=== PATIENT | male | born 1960 | race African-American/Black ===

== ENCOUNTER 2017-05-14 10:49 | Observation (INO) | payer SELFPAY ==
[2017-05-14 11:27] LABS: #Basophils 0.1 thou/uL (0.0-0.2); #Eosinphils 0.3 thou/uL (0.0-0.7); #Lymphocytes 1.7 thou/uL (1.20-3.40); #Monocytes 0.8 thou/uL (0.11-0.59); #Neutrophils 3.3 thou/uL (1.40-6.50); %Basophils 1.6 % (0.0-1.0); %Eosinophils 4.4 % (0.0-10.0); %Lymphocytes 28.1 % (21.0-51.0); %Monocytes 12.6 % (0.0-10.0); %Neutrophils 53.3 % (42.0-75.0); Hemoglobin 15.1 g/dL (14.0-18.0); Mean Corpuscular HGB CONC 33.2 g/dL (32.0-36.0); Mean Corpuscular Hemoglobin 29.2 pg (27.0-31.0); Mean Corpuscular Volume 87.8 fl (80.0-94.0); Mean Platelet Volume 8.7 fL (7.4-10.4); Platelet Count 287 thou/uL (130-400); RBC Distribution Width 12.1 % (11.5-14.5); Red Blood Cell (RBC) Count 5.19 mill/uL (4.70-6.10); White Blood Cell (WBC) Count 6.1 thou/uL (4.8-10.8)
[2017-05-14 11:30] LABS: Bilirubin Negative (Negative); Blood, Urine Negative (Negative); Clarity CLEAR (Clear); Glucose, Urine (Dipstick) Negative (Negative); Leukocyte Small (Negative); Nitrite Negative (Negative); Protein, Urine (Dipstick) Negative (Neg-Trace); Specific Gravity, Urine 1.018 (1.002-1.036)
[2017-05-14 11:32] LABS: Bacteria/HPF None Seen HPF (None Seen); Hyaline Casts/LPF 0-3 HYALINE CAST LPF (0-3 Hyaline); Squamous Epithelial None Seen HPF (0-3); WBC/HPF 0-3 HPF (0-3)
[2017-05-14 11:50] LABS: CKMB 1.4 ng/mL (0-6.6); Troponin I 0.071 ng/mL (< 0.028)
--- NOTE | 2017-05-14 11:52 | RAD ---
FRONTAL VIEW CHEST: INDICATIONS: Dizziness and nausea. COMPARISON: None. FINDINGS: The lungs are clear. The cardiac silhouette is normal in size. Mild osseous degenerative change is present. IMPRESSION: No focal consolidation. POS: [facility]
[2017-05-14 11:56] LABS: ALT (SGPT) 15 U/L (8-55); AST (SGOT) 17 U/L (5-34); Alkaline Phosphatase 58 U/L (40-150); Anion Gap 11 mmol/L (10-20); BUN (Urea Nitrogen) 15 mg/dL (8.4-25.7); Bilirubin, Total 0.7 mg/dL (0.2-1.2); CK (CPK) 156 U/L (30-200); Calc. Creatinine Clearance 0 mL/min (70-130); Calcium 9.2 mg/dL (7.8-10.44); Carbon Dioxide 29 mmol/L (22-29); Chloride 99 mmol/L (98-107); Estimated GFR-MDRD 77; Globulin 3.3 g/dL (2.4-3.5); Glucose 138 mg/dL (70-105); Protein, Total 7.3 g/dL (6.0-8.3); Sodium 136 mmol/L (136-145)
[2017-05-14] MEDS ORDERED: Benzonatate 100 MG CAP ONE (12:38)
[2017-05-14] MEDS ORDERED: Meclizine HCl 25 MG TAB ONE (13:05)
[2017-05-14] MEDS ORDERED: Ondansetron HCl/PF 4 MG/2 ML Vial ONE (13:06)
--- NOTE | 2017-05-14 13:38 | CT ---
CT BRAIN WITHOUT CONTRAST: History: Dizziness. 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 No evidence of acute infarct, hemorrha ge, midline shift, or abnormal extraaxial fluid collections are seen. The ventricular size is appropr iate and the basal cisterns are patent. The bony calvarium is intact. Visualized paranasal sinuses an d mastoid air cells are well aerated. IMPRESSION: No CT evidence of acute intracranial process. POS: [facility]
--- NOTE | 2017-05-14 15:10 | HP ---
PRIMARY CARE PHYSICIAN: [facility]. REASON FOR ADMISSION: Dizziness and elevated troponin. HISTORY OF PRESENT ILLNESS: A 56-year-old -[place] male with a history of obesity as well as hypertension who presented to emergency room with a complaint of dizziness. The patient reports alexei t 3 days ago symptoms started along with dizziness and nausea. He feels wobbly, but he never fell. He denies any headache. He denies any chest pain, palpitation or syncope. He has upper respiratory infection including cough and runny nose, but he denies any tinnitus. He denies any ear pain. He de nies any paresthesia in upper or lower extremity. He denies any diplopia or blurred vision. He denies any difficulty combing. He denies any difficulty holding object. Patient denies any chest pain or palpitation, but today in the emergency room his troponin is indeter minant range. He denies any orthopnea, PND or leg swelling. He denies any calf tenderness. He meghan es any UTI symptoms. He denies any constipation, diarrhea, melena or hematochezia. In the emergency room, he is treated with meclizine, IV fluid, aspirin, Zofran, Tessalon, but still h is symptoms have not improved and that is why ER physician concerned about posterior circulation stro ke and we are keeping in hospital for observation. 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 His chest x-ray is normal. Routine blood tests showed h ypokalemia. ALLERGIES: No known drug allergy. CURRENT HOME MEDICATIONS: Atenolol 100 mg p.o. daily, lisinopril 40 mg p.o. daily, and hydrochloroth iazide 50 mg p.o. daily. REVIEW OF SYSTEMS: The following complete review of systems was negative, unless otherwise mentioned in the HPI or below: Constitutional: Weight loss or gain, ability to conduct usual activities. Skin: Rash, itching. Eyes: Double vision, pain. ENT/Mouth: Nose bleeding, neck stiffness, pain, tenderness. Cardiovascular: Palpitations, dyspnea on exertion, orthopnea. Respiratory: Shortness of breath, wheezing, cough, hemoptysis, fever or night sweats. Gastrointestinal: Poor appetite, abdominal pain, heartburn, nausea, vomiting, constipation, or diarr hea. Genitourinary: Urgency, frequency, dysuria, nocturia. Musculoskeletal: Pain, swelling. Neurologic/Psychiatric: Anxiety, depression. Allergy/Immunologic: Skin rash, bleeding tendency. Please see my HPI for pertinent positive and negative. All other review of systems reviewed and nega tive except as mentioned in the HPI. PAST MEDICAL HISTORY: Morbid obesity, nephrolithiasis, and hypertension. PAST SURGICAL HISTORY: Back surgery and left hand surgery. PAST PSYCHIATRIC HISTORY: Reviewed and negative. SOCIAL HISTORY: Patient lives at home. No history of tobacco, alcohol or illicit drug abuse. FAMILY HISTORY: No strong family history of premature coronary artery disease, stroke or cancer. EMERGENCY ROOM COURSE: Patient is given aspirin, Zofran, IV fluid, meclizine and Tessalon Perles. PHYSICAL EXAMINATION: VITAL SIGNS: Currently, blood pressure 128/71, pulse 59, respiratory rate 18, temperature 97.5, satu ration 96% on room air, and weight 112.4 kilograms. GENERAL: Patient is currently alert, oriented, no acute distress. HEAD: Normocephalic, atraumatic. EYES: Pupils round, reactive to light. No nystagmus. ENT: Oropharynx within normal limits. Ear examination within normal limit. External ear normal. T ympanic membrane normal. No pharyngeal erythema, no exudate. NECK: Supple, no JVD, no thyromegaly, no carotid bruit, no meningeal signs of irritation. LUNGS: Clear to auscultation without any rhonchi or rales. CARDIAC: S1, S2 regular without any murmur. ABDOMEN: Obesity present. Bowel sounds present, nontender, nondistended. No organomegaly, no mass, no suprapubic tenderness. BACK: Examination unremarkable, no CVA tenderness. EXTREMITIES: Upper extremity passive movements of all joints are normal. Lower extremities: No beata ma. Good peripheral pulsation, no calf tenderness. SKIN: No skin rash. HEMATOLOGICAL SYSTEM: No lymphadenopathy. PSYCHIATRIC: Normal affect. NEUROLOGIC: Patient is alert and oriented x3. Cranial nerves II-XII intact. Motor 5/5 in all four limbs. Sensation bilaterally symmetrical. No cerebellar sign. Reflexes bilaterally symmetrical. P lantar bilateral flexor. IMAGING DATA AND SIGNIFICANT LABORATORY DATA: 1. EKG showing normal sinus rhythm, nonspecific T-wave changes. 2. CT brain showing old infarct in the right frontal horn, but no acute process. 3. Chest x-ray based on my review, no acute cardiopulmonary process. 4. CBC: WBC 6.1, hemoglobin 15.1, platelet 287. 5. Urinalysis; leukocyte small, CK-MB 1.4, troponin I 0.071. Influenza screen negative. CK 156. 6. BMP: Sodium 136, potassium 3.0, chloride 99, carbon dioxide 29, anion gap 11, BUN 15, creatinine 1.18, glucose 138, calcium 9.2. 7. LFT: Protein 7.3, albumin 4.0, AST 17, ALT 15, alkaline phosphatase 58. ASSESSMENT AND PLAN/IMPRESSION: 1. Dizziness and nausea. Patient's description is atypical. He has upper respiratory infection, dorado spected for vestibular involvement, but exact and obvious clinical signs are not evident on examinati on. Does not suspect any cerebellar stroke or posterior circulation stroke, but cannot be entirely e xcluded given indeterminate troponin needs to rule out any arrhythmia as well. Orthostatic dizziness is also possible given he is taking several blood pressure medications and his blood pressure is rel atively lower side. At this point, we will keep this patient in hospital for observation to try to m alannah a diagnosis. We will check orthostatic vitals. We will obtain MRI brain, carotid Doppler echoca rdiography as a part of workup for stroke. We will check lipid profile, homocysteine tomorrow. We w ill also treat symptomatically with Antivert 25 mg t.i.d. scheduled and we will hydrate him with IV f luid with NS with KCl at 75 mL per hour. We will only use blood pressure medication if blood pressur e allows us. He may need treated with adjustment in his blood pressure medication given his bradycar fredy, so we may need to reduce atenolol dose and we may need to reduce dose of hydrochlorothiazide as well, but we will device all of these based on his hemodynamics. 2. Elevated troponin, etiology uncertain. He does not have any EKG changes. He does not have any c hest pain, but troponin is slightly elevated. We will do 3 sets of cardiac enzymes to see the trend of troponin. We will obtain echocardiography and we will continue with aspirin 325 mg p.o. daily and we will check lipid profile as well. We will monitor on telemetry floor for any arrhythmias. 3. Morbid obesity. Dietary education given. Weight loss education given. Healthy lifestyle measur es discussed with the patient. 4. Hypokalemia, likely related with hydrochlorothiazide. We will give him IV fluid with potassium a nd we will also check magnesium level as well and replace accordingly. We will repeat BMP tomorrow. 5. History of hypertension. At this point, we will give him blood pressure medication only if blood pressure is increasing. At that time we will try to give him lisinopril 10 mg p.o. daily, hydrochlo rothiazide 12.5 mg p.o. daily and atenolol 25 mg p.o. daily and then we will decide if he needs more or dose or not. 6. Deep venous thrombosis prophylaxis, Lovenox 40 mg subcu daily. 7. Gastrointestinal prophylaxis, Pepcid 20 mg p.o. b.i.d. 8. Code status: The patient is FULL CODE. The patient does not have any surrogate decision maker. Disposition plan based on clinical course and above-mentioned investigation results, likely within 24 hours. We will also check urine drug screen.
[2017-05-14 16:32] LABS: Troponin I 0.077 ng/mL (< 0.028)
[2017-05-14 16:35] VITALS: BMI 36.9
[2017-05-14] MEDS ORDERED: Milk Of Magnesia 30 ML UDCUP PO PRN (17:09)
[2017-05-14] MEDS ORDERED: Mag-Al 1200 mg/1200 mg/30 ML UDCUP PO PRN (17:09)
[2017-05-14] MEDS ORDERED: Acetaminophen 325 MG TAB PO PRN (17:09)
[2017-05-14] MEDS ORDERED: Zolpidem Tartrate 5 MG TAB PO PRN (17:09)
[2017-05-14] MEDS ORDERED: Artificial Tear Sol 15 ML BOT EA EYE PRN (17:09)
[2017-05-14] MEDS ORDERED: Loperamide HCl 2 MG CAP PO PRN (17:09)
[2017-05-14] MEDS ORDERED: Sodium Chloride 0.65% Nasal 44 ML BOT EA NARE PRN (17:09)
[2017-05-14] MEDS ORDERED: Nitroglycerin 0.4 MG TAB (25 Tab Bottle) SL PRN (17:09)
[2017-05-14] MEDS ORDERED: Eucerin (Mineral Oil/Petrolatum,White) 30 gm Jar TOP PRN (17:09)
[2017-05-14] MEDS ORDERED: Loratadine 10 MG TAB PO PRN (17:09)
[2017-05-14] MEDS ORDERED: Ondansetron HCl/PF 4 MG/2 ML Vial IVP PRN (17:09)
[2017-05-14] MEDS ORDERED: Diabetic Tussin 200 MG/10 ML UDCUP PO PRN (17:09)
[2017-05-14] MEDS ORDERED: Ondansetron ODT 4 MG TAB PO PRN (17:09)
[2017-05-14] MEDS ORDERED: hydrALAZINE 20 MG/ML VIAL SLOW IVP PRN (17:09)
[2017-05-14] MEDS ORDERED: Senokot 8.6 MG TAB PO PRN (17:09)
[2017-05-14] MEDS ORDERED: HYDROcodone/Acetaminophen 5/325 mg Tablet PO PRN (17:09)
[2017-05-14] MEDS ORDERED: Chloraseptic Spray 180 ml Bottle PO PRN (17:09)
[2017-05-14] MEDS: NS 0.9% w/ 20 MEQ KCL 1,000 ML/1,000 ML BAG IV SCH (18:40)
[2017-05-14 19:00] LABS: Troponin I 0.073 ng/mL (< 0.028)
[2017-05-14 19:08] LABS: Amphetamine Not Detected (NotDetected); Barbiturates Screen Not Detected (NotDetected); Benzodiazepine Screen Not Detected (NotDetected); Cocaine Metabolite Screen Not Detected (NotDetected); Medtox Control Line Valid? VALID (VALID); Medtox Reader # READER 1; Methadone Not Detected (NotDetected); Methamphetamine Not Detected (NotDetected); Opiate Screen Not Detected (NotDetected); Oxycodone Screen Not Detected (NotDetected); Phencyclidine (PCP) Not Detected (NotDetected); THC/Cannabinoid Screen Not Detected (NotDetected); Tricyclic Screen Not Detected (NotDetected)
--- NOTE | 2017-05-14 20:02 | ULT ---
CAROTID DUPLEX SONOGRAM 05/14/17 HISTORY: Altered mental status. Vascular disease. FINDINGS: RIGHT: Mild plaque. Color and spectral doppler evaluation, peak systolic velocity of 66 cm/s and IC to CC ra riaz of 0.9 suggests no hemodynamically significant stenosis within the extracranial right ICA. Antegr stephany flow is present within the vertebral artery. LEFT: Minimal plaque. Color and spectral doppler evaluation, peak systolic velocity of 42 cm/s and IC to CC ratio of 0.3 suggests no hemodynamically significant stenosis within the extracranial left ICA. Ante grade flow is present within the vertebral artery. IMPRESSION: 1. No sonographic evidence of significant extracranial ICA stenosis. 2. Atherosclerosis. POS: [facility]
[2017-05-14] MEDS ORDERED: FLU VACC QS2017-18 36 mo. & older 0.5 ML SYRINGE IM ONE (21:00)
[2017-05-14] MEDS ORDERED: Atorvastatin Calcium 40 MG TAB PO SCH (21:00)
[2017-05-14] MEDS: Famotidine 20 MG TAB PO SCH (21:19)
[2017-05-14] MEDS: Meclizine HCl 25 MG TAB PO SCH (21:19)
[2017-05-15 04:59] LABS: #Eosinphils 0.4 thou/uL (0.0-0.7); #Lymphocytes 1.6 thou/uL (1.20-3.40); #Monocytes 0.8 thou/uL (0.11-0.59); #Neutrophils 3.4 thou/uL (1.40-6.50); %Basophils 0.6 % (0.0-1.0); %Eosinophils 6.2 % (0.0-10.0); %Lymphocytes 26.2 % (21.0-51.0); %Monocytes 12.4 % (0.0-10.0); %Neutrophils 54.7 % (42.0-75.0); Hemoglobin 14.8 g/dL (14.0-18.0); Mean Corpuscular HGB CONC 34.2 g/dL (32.0-36.0); Mean Corpuscular Hemoglobin 30.2 pg (27.0-31.0); Mean Corpuscular Volume 88.3 fl (80.0-94.0); Mean Platelet Volume 8.5 fL (7.4-10.4); Platelet Count 259 thou/uL (130-400); RBC Distribution Width 12.2 % (11.5-14.5); White Blood Cell (WBC) Count 6.2 thou/uL (4.8-10.8)
[2017-05-15] MEDS: Meclizine HCl 25 MG TAB PO SCH ×2 (05:09→13:36)
[2017-05-15 05:21] LABS: Anion Gap 7 mmol/L (10-20); BUN (Urea Nitrogen) 13 mg/dL (8.4-25.7); Calc. Creatinine Clearance 119 mL/min (70-130); Calcium 8.8 mg/dL (7.8-10.44); Carbon Dioxide 32 mmol/L (22-29); Cardiac Risk 5.9 (Less than 4.5); Chloride 100 mmol/L (98-107); Cholesterol 200 mg/dl (< 200 Desired); Estimated GFR-MDRD 83; Glucose 115 mg/dL (70-105); HDL Cholesterol 34 mg/dL (>60 Neg Risk); LDL Cholesterol, Calculated 148 mg/dL; Potassium 3.4 mmol/L (3.5-5.1); Sodium 136 mmol/L (136-145); Triglycerides 91 mg/dL (Less than 150)
[2017-05-15] MEDS ORDERED: Potassium Chloride 20 MEQ TAB PO SCH (07:00)
[2017-05-15] MEDS: NS 0.9% w/ 20 MEQ KCL 1,000 ML/1,000 ML BAG IV SCH (07:47)
[2017-05-15] MEDS ORDERED: Lisinopril 20 MG TAB PO SCH (09:00)
[2017-05-15] MEDS ORDERED: Amlodipine 5 MG TAB PO SCH (09:00)
[2017-05-15] MEDS ORDERED: Aspirin 325 mg Enteric Coated Tablet PO SCH (09:00)
[2017-05-15] MEDS ORDERED: Enoxaparin Sodium 40 MG/0.4 ML SYRINGE SC SCH (09:00)
--- NOTE | 2017-05-15 09:24 | PDOC.PN ---
- Subjective Encounter Start Date: 05/15/17 Encounter Start Time: 07:10 -: old records requested/rev no vertigo today, no cough, Patient seen and examined. No new complaints. No overnight events - Objective Resuscitation Status: Resuscitation Status FULL:Full Resuscitation MAR Reviewed: Yes Vital Signs & Weight: Vital Signs (12 hours) Temp Pulse Resp BP Pulse Ox 05/15/17 08:00 97.8 F 68 20 143/88 H 95 05/15/17 04:00 98.0 F 61 20 149/93 H 05/15/17 00:00 98.3 F 63 20 151/93 H 20 L I&O: 05/14/17 05/15/17 05/16/17 06:59 06:59 06:59 Intake Total 1400 Balance 1400 Result Diagrams: 05/15/17 04:45 05/15/17 04:45 Radiology Reviewed by me: Yes (carotid us-normal) EKG Reviewed by me: Yes (nsr) Phys Exam - Physical Examination Constitutional: NAD HEENT: PERRLA, moist MMs, sclera anicteric Neck: no JVD, supple Respiratory: no wheezing, no rales, no rhonchi Cardiovascular: RRR, no significant murmur, no rub Gastrointestinal: soft, non-tender, no distention, positive bowel sounds Musculoskeletal: no edema, pulses present Neurological: non-focal, normal sensation, moves all 4 limbs Psychiatric: normal affect, A&O x 3 Skin: no rash, normal turgor Dx/Plan (1) Dizziness Code(s): R42 - DIZZINESS AND GIDDINESS Status: Acute (2) Elevated troponin Code(s): R74.8 - ABNORMAL LEVELS OF OTHER SERUM ENZYMES Status: Acute (3) Hypokalemia Code(s): E87.6 - HYPOKALEMIA Status: Acute (4) Hypertension Code(s): I10 - ESSENTIAL (PRIMARY) HYPERTENSION Status: Chronic (5) Obesity (BMI 30-39.9) Code(s): E66.9 - OBESITY, UNSPECIFIED Status: Chronic - Plan cont current plan of care * today MRI and echo * pt is advised to reduce 50% dose of his BP meds on discharge and monitor BP and follow up with PCP * add lipitor, asa, ventolin inhalar, antivert on discharge * medication reviewed as below * symptomatic treatment * will discharge later today. Review of Systems - Review of Systems ENT: negative: Ear Pain, Ear Discharge, Nose Pain, Nose Discharge, Nose Congestion, Mouth Pain, Mouth Swelling, Throat Pain, Throat Swelling, Other Respiratory: negative: Cough, Dry, Shortness of Breath, Hemoptysis, SOB with Excertion, Pleuritic Pain, Sputum, Wheezing Cardiovascular: negative: chest pain, palpitations, orthopnea, paroxysmal nocturnal dyspnea, edema, light headedness, other Gastrointestinal: negative: Nausea, Vomiting, Abdominal Pain, Diarrhea, Constipation, Melena, Hematochezia, Other Genitourinary: negative: Dysuria, Frequency, Incontinence, Hematuria, Retention , Other Musculoskeletal: negative: Neck Pain, Shoulder Pain, Arm Pain, Back Pain, Hand Pain, Leg Pain, Foot Pain, Other Skin: negative: Rash, Lesions, Rik, Bruising, Other - Medications/Allergies Allergies/Adverse Reactions: Allergies Allergy/AdvReac Type Severity Reaction Status Date / Time No Known Drug Allergies Allergy Verified 05/14/17 15:54 Medications: Current Medications Acetaminophen (Tylenol) 650 mg PO Q4H PRN PRN Reason: Headache/Fever or Pain Hydrocodone Bitart/Acetaminophen ([place] 5/325) 1 tab PO Q4H PRN PRN Reason: Moderate Pain (4-6) Al Hydroxide/Mg Hydroxide (Maalox) 30 ml PO Q6H PRN PRN Reason: Heartburn or Indigestion Amlodipine Besylate (Norvasc) 5 mg PO DAILY [facility] Artificial Tears (Tears Renewed 15ml Bottle) 0 drop EA EYE PRN PRN PRN Reason: Dry Eyes Aspirin (Ecotrin) 325 mg PO DAILY [facility] Atorvastatin Calcium (Lipitor) 40 mg PO HS [facility] Last Admin: 05/14/17 21:19 Dose: 40 mg Enoxaparin Sodium (Lovenox) 40 mg SC 0900 [facility] Famotidine (Pepcid) 20 mg PO BID [facility] Last Admin: 05/14/17 21:19 Dose: 20 mg Guaifenesin (Robitussin Sf) 200 mg PO Q4H PRN PRN Reason: Cough Hydralazine HCl (Apresoline) 10 mg SLOW IVP Q4H PRN PRN Reason: Systolic BP > 180 Lisinopril (Zestril) 20 mg PO DAILY [facility] Loperamide HCl (Imodium) 2 mg PO PRN PRN PRN Reason: Diarrhea/Loose Stools Loratadine (Claritin) 10 mg PO DAILYPRN PRN PRN Reason: Sinus Symptoms Magnesium Hydroxide (Milk Of Magnesium) 30 ml PO DAILYPRN PRN PRN Reason: Constipation Meclizine HCl (Antivert) 25 mg PO Q8HR [facility] Last Admin: 05/15/17 05:09 Dose: 25 mg Mineral Oil/White Petrolatum (Eucerin Cream) 0 gm TOP BIDPRN PRN PRN Reason: Dry Skin Nitroglycerin (Nitrostat) 0.4 mg SL Q5MIN PRN PRN Reason: Chest Pain Ondansetron HCl (Zofran Odt) 4 mg PO Q6H PRN PRN Reason: Nausea/Vomiting Ondansetron HCl (Zofran) 4 mg IVP Q6H PRN PRN Reason: Nausea/Vomiting Phenol (Chloraseptic [place] 180 Ml Bot) 0 ml PO PRN PRN PRN Reason: Sore Throat Senna (Senokot) 2 tab PO HSPRN PRN PRN Reason: Constipation Sodium Chloride ([place] Nasal [place] 0.65%) 0 ml EA NARE QIDPRN PRN PRN Reason: Nasal Congestion Zolpidem Tartrate (Ambien) 5 mg PO HSPRN PRN PRN Reason: Insomnia
[2017-05-15] MEDS: Famotidine 20 MG TAB PO SCH (09:45)
--- NOTE | 2017-05-15 10:31 | DIS ---
DATE OF ADMISSION: 05/14/2017 DATE OF DISCHARGE: 05/15/2017 [facility]: Home. PRIMARY DISCHARGE DIAGNOSES: 1. Dizziness. 2. Elevated troponin due to demand ischemia. 3. Hypokalemia. SECONDARY DISCHARGE DIAGNOSES: Hypertension, obesity with body mass index 36. PRIMARY PROCEDURE/OPERATION: None. RADIOLOGICAL INVESTIGATION: Carotid Doppler is normal. CT brain is negative for any acute intracran ial process, showed old infarction in the right frontal horn. Chest x-ray normal. PENDING TEST RESULTS: MRI brain as well as echocardiography. SIGNIFICANT LABS: WBC 6.2, hemoglobin 14.8, platelet 259. Sodium 136, potassium 3.4, BUN 13, creati nine 1.10. LFT normal. Troponin 0.073, LDL 148. Homocysteine 10.29. Urinalysis unremarkable. Uri ne drug screen negative. Influenza screen negative. DISCHARGE MEDICATIONS: Norvasc 10 mg p.o. daily, aspirin 325 mg p.o. daily, atenolol 100 mg p.o. ranulfo ly, Lipitor 10 mg p.o. daily, [place] 25 mg p.o. daily, lisinopril 40 mg p.o. daily, Antivert 25 mg p.o. q.8 hourly p.r.n. ADDITIONTAL INFORMATION: This patient is advised to take half dose of his antihypertensive medicatio n for at least 1 week and monitor blood pressure frequently at home and see the primary care physicia n in 1 week, so they can decide with reducing dose of antihypertensive medication. The patient is ad vised if blood pressure is going very high, then he can resume his home medication dose. CONTRAINDICATIONS: None. CODE STATUS: FULL CODE. INPATIENT CONSULTANTS: None. ALLERGIES: No known drug allergy. DISCHARGE PLAN: Post hospital, the patient will follow up with [facility] in 1 week. HOSPITAL COURSE: A 56-year-old male with the above mentioned medical problem who was experiencing ru nny nose and some cough. He was also experiencing dizziness. He was found with a low blood pressure and bradycardia. He was taking bunch of blood pressure medication that was contributing to his orth ostatic hypotension that might was causing his dizziness. He was also found with indeterminate tropo mahnaz and that is why we decided to keep this patient in hospital. He did not have any cerebellar sign . His neurological examination was completely normal. His telemetry remained unremarkable. He neve r had any chest pain. We did echocardiography, MRI brain, but official report is pending. We did a carotid Doppler which s howing atherosclerosis and this patient also has new diagnosis of high LDL and that is why we started Lipitor therapy. For symptomatic treatment of dizziness, we prescribed Antivert, which is working f or patient. Aspirin is also advised to take every day basis. The patient does not have any clearcut evidence of peripheral etiology of dizziness. At this point, likely after IV fluid, patient's dizziness is improved and that is why we are suspecti ng orthostatic hypotension and necessary patient education about reducing half dose of antihypertensi ve medication upon discharge was discussed. The patient is seen and examined at bedside today. If the MRI and echocardiography is unremarkable, then we will consider discharging him home later on today.
[2017-05-15 15:54] VITALS: BP 144/92; TEMP 98
--- NOTE | 2017-05-15 17:31 | MRI ---
MRI BRAIN WITHOUT CONTRAST 05/15/17 HISTORY: Dizziness. TIA. FINDINGS: Correlation is made with the previous day's CT scan. FINDINGS: No restricted diffusion is seen. Old infarction adjacent to the right frontal horn is again seen. No hemorrhage, midline shift, or abnormal extra-axial fluid collections are seen. The ventricular size i s appropriate and the basilar cisterns patent. The visualized paranasal sinuses and mastoid air cells are well aerated. IMPRESSION: No evidence of acute intracranial process. POS: [facility]
--- NOTE | 2017-05-17 13:25 | EKG ---
Test Reason : Blood Pressure : / mmHG Vent. Rate : 063 BPM Atrial Rate : 063 BPM P-R Int : 160 ms QRS Dur : 092 ms QT Int : 424 ms P-R-T Axes : 057 046 -19 degrees QTc Int : 433 ms Normal sinus rhythm Possible Left atrial enlargement Nonspecific T wave abnormality Abnormal ECG Confirmed by KIRA NARAYAN, ALEYDA ([id number]), subeditor IGGY ROLLE ([id number]) on 05/17/2017 1:25:07 PM Referred By: Confirmed By:ALEYDA MALONE MD
== END 2017-05-15 19:20 | disposition home or self-care (01) ==
LOC: ERS 10:49 → 2SE 14:29
PROVIDERS: ADMIT Internal Medicine; ATTEND Internal Medicine
DX: R42 Dizziness and giddiness (principal); R79.89 Other specified abnormal findings of blood chemistry; E87.6 Hypokalemia; I10 Essential (primary) hypertension; E66.01 Morbid (severe) obesity due to excess calories; Z68.36 Body mass index [BMI] 36.0-36.9, adult; Z79.899 Other long term (current) drug therapy; Z98.890 Other specified postprocedural states
CPT/HCPCS: 36415; 70450; 70551; 71045; 80048; 80053; 80061; 80306; 81003; 81015; 82553; 83090; 83735; 84484; 85025; 87804; 90471; 90682; 93005; 93306; 93880; 96361; 96372; 96374; G0008; G0378; J1650; J2405; Q2036

== ENCOUNTER 2017-06-27 18:47 | Emergency (ER) | payer SELFPAY ==
[2017-06-27] MEDS ORDERED: Ketorolac Tromethamine 30 MG/ML VIAL ONE (19:10)
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
== END 2017-06-27 19:51 | disposition home or self-care (01) ==
LOC: ERS 18:47
DX: S16.1XXA Strain of muscle, fascia and tendon at neck level, initial encounter (principal); M50.30 Other cervical disc degeneration, unspecified cervical region; I10 Essential (primary) hypertension; Z79.899 Other long term (current) drug therapy; V43.52XA Car driver injured in collision with other type car in traffic accident, initial encounter
CPT/HCPCS: 72125; 96372; J1885

== ENCOUNTER 2018-02-21 13:08 | Observation (INO) | payer OTHER, SELFPAY ==
[2018-02-21 13:55] LABS: #Basophils 0.1 thou/uL (0.0-0.2); #Eosinphils 0.2 thou/uL (0.0-0.7); #Lymphocytes 1.8 thou/uL (1.20-3.40); #Monocytes 0.9 thou/uL (0.11-0.59); #Neutrophils 5.1 thou/uL (1.40-6.50); %Basophils 1.2 % (0.0-1.0); %Eosinophils 2.3 % (0.0-10.0); %Lymphocytes 22.6 % (21.0-51.0); %Monocytes 11.1 % (0.0-10.0); %Neutrophils 62.8 % (42.0-75.0); Hemoglobin 14.4 g/dL (14.0-18.0); Mean Corpuscular HGB CONC 33.2 g/dL (32.0-36.0); Mean Corpuscular Hemoglobin 28.9 pg (27.0-31.0); Mean Platelet Volume 10.3 fL (7.4-10.4); Platelet Count 236 thou/uL (130-400); RBC Distribution Width 12.6 % (11.5-14.5); White Blood Cell (WBC) Count 8.1 thou/uL (4.8-10.8)
[2018-02-21 14:18] LABS: ALT (SGPT) 17 U/L (8-55); AST (SGOT) 16 U/L (5-34); Alkaline Phosphatase 52 U/L (40-150); Anion Gap 14 mmol/L (10-20); BUN (Urea Nitrogen) 12 mg/dL (8.4-25.7); Bilirubin, Total 0.6 mg/dL (0.2-1.2); Calc. Creatinine Clearance 0 mL/min (70-130); Calcium 8.9 mg/dL (7.8-10.44); Carbon Dioxide 25 mmol/L (22-29); Chloride 104 mmol/L (98-107); Estimated GFR-MDRD 84; Globulin 3.1 g/dL (2.4-3.5); Glucose 153 mg/dL (70-105); Potassium 3.6 mmol/L (3.5-5.1); Protein, Total 7.1 g/dL (6.0-8.3); Sodium 139 mmol/L (136-145)
--- NOTE | 2018-02-21 14:19 | RAD ---
PORTABLE CHEST: DATE: 02/21/2018. PROVIDED CLINICAL HISTORY: Shortness of breath. FINDINGS: Comparison 05/14/2017. Cardiac silhouette appears enlarged. Prominence of the pulmonary vasculature is mild. No focal consolidation, pleural fluid, or pneumothorax apparent. IMPRESSION: Cardiomegaly and prominence of the pulmonary vasculature. Correlate for congestive failure. POS: [facility]
[2018-02-21] MEDS ORDERED: Nitroglycerin 2% Ointment 1 INCH/1 GM Packet ONE (14:38)
[2018-02-21 14:40] LABS: CKMB 1.4 ng/mL (0-6.6)
[2018-02-21] MEDS ORDERED: Furosemide 40 MG/4 ML VIAL ONE (15:18)
[2018-02-21] MEDS ORDERED: HYDROcodone/Acetaminophen 5/325 mg Tablet PO PRN (17:14)
[2018-02-21] MEDS ORDERED: Acetaminophen 325 MG TAB PO PRN (17:14)
[2018-02-21] MEDS ORDERED: hydrALAZINE 20 MG/ML VIAL SLOW IVP PRN (17:19)
[2018-02-21 17:23] LABS: Troponin I 0.116 ng/mL (< 0.028)
[2018-02-21] MEDS ORDERED: Furosemide 20 MG/2 ML VIAL SLOW IVP SCH (17:30)
[2018-02-21 18:04] VITALS: BMI 38.8
[2018-02-21] MEDS: Famotidine 20 MG TAB PO SCH (19:39)
[2018-02-21 20:11] LABS: Troponin I 0.115 ng/mL (< 0.028)
--- NOTE | 2018-02-21 23:38 | HP ---
PRIMARY CARE PHYSICIAN: Dr. Wiseman. CHIEF COMPLAINT: Shortness of breath. HISTORY OF PRESENT ILLNESS: Mr. Madrid is a 57-year-old male with a past medical history of hypertension and a TIA in April of this year, and presented to the emergency room for evaluation of shortness of breath, which he reports started around midnight. Reports he feels like he was being smothered. Denies having any similar episodes in the past. Does report some intermittent chest pain with 1 episode of sharp chest pain, which came in and went pretty quickly. The patient reports symptoms are exacerbated by lying flat. Denies any past medical history of coronary artery disease. He does report some recent weight gain. 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 Wiseman, 2 weeks ago for some adjustments. In the emergency room, his EKG showed normal sinus rhythm, beats per minute were 65, ST segments were normal, T waves were nonspecific, axis was normal. Other findings were possible left atrial enlargement. He did have a chest x-ray, which showed moderate congestive heart failure. First troponin in the emergency room was in the indeterminate range at 0.117. BNP was 332.7. Other lab values were unremarkable. He was admitted in April of 2017 for a TIA and had an echocardiogram, which showed an EF of 60% to 65%, grade 2/3 diastolic dysfunction, mildly dilated left atrium, mild mitral regurgitation, mild tricuspid regurgitation, mild pulmonic regurgitation. Based on risk factors and symptoms, the patient was admitted to the observation unit for further management. PAST MEDICAL HISTORY: Includes hypertension, history of a TIA, and arthritis. PAST SURGICAL HISTORY: Includes a lumbar spine injection and left thumb surgery. SOCIAL HISTORY: Lives at home alone. Denies any drug, alcohol or tobacco abuse. REVIEW OF SYSTEMS: CONSTITUTIONAL: Denies fevers or chills. EYES: Denies any eye pain or vision changes. ENT: Denies any rhinorrhea or sore throat. CARDIOVASCULAR: Does report some sharp chest pain earlier today. RESPIRATORY: Reports some shortness of breath. GASTROINTESTINAL: Denies any abdominal pain, diarrhea, nausea or vomiting. GENITOURINARY: Male. Denies any dysuria or hematuria. MUSCULOSKELETAL: Denies any injury or trauma, or chronic back pain. SKIN: Denies any rash or skin changes. NEUROLOGIC: Denies any headache or any focal deficits. HEMOLYMPHATIC: Denies any abnormal blood clotting. PHYSICAL EXAMINATION: VITAL SIGNS: Blood pressure 183/98, pulse is 52, respirations are 18, temperature is 98, and O2 sats are 98% on room air. GENERAL: The patient is alert and oriented to person, place, and time, is nontoxic appearing. HEAD: Atraumatic and normocephalic. EYES: Eyelids are normal to inspection. Pupils are equally round and reactive to light. Extraocular muscles are intact. ENT: Pharynx exam is normal. Mucous membranes are moist. Mouth exam is normal. NECK: Normal range of motion. Trachea is midline. RESPIRATORY/CHEST: No respiratory distress. Breath sounds are clear. CARDIOVASCULAR: Heart rate is regular rate and rhythm. Heart sounds are normal. ABDOMEN: Male. No tenderness. No distention. No peritoneal signs. BACK: Normal inspection. Normal range of motion. MUSCULOSKELETAL: Upper extremity; inspection normal. Range of motion normal. Strength is normal. Sensation is intact. Radial pulses bilaterally. Lower extremities; inspection normal. Range of motion normal. Motor strength is normal. Sensation intact. Pedal pulses are normal bilaterally. No edema is noted to bilateral extremities. NEUROLOGIC: The patient is oriented to person, place and time. Speech is normal. Gait was not assessed. SKIN: Normal, dry, normal in color. No rash. ASSESSMENT AND PLAN: 1. Chest pain with dyspnea. We will trend troponins. We will repeat the echocardiogram. 2. Hypertension. We will restart home medications. We will add some p.r.n. medication for systolic value over 180. 3. Deep venous thrombosis and gastrointestinal prophylaxis will be started. 4. Hospital course will be dependent on clinical findings. Job ID: [id number]
[2018-02-22 07:07] LABS: #Eosinphils 0.2 thou/uL (0.0-0.7); #Lymphocytes 1.8 thou/uL (1.20-3.40); #Monocytes 0.8 thou/uL (0.11-0.59); #Neutrophils 4.4 thou/uL (1.40-6.50); %Basophils 0.6 % (0.0-1.0); %Eosinophils 2.5 % (0.0-10.0); %Lymphocytes 24.9 % (21.0-51.0); %Monocytes 11.5 % (0.0-10.0); %Neutrophils 60.4 % (42.0-75.0); Hemoglobin 14.9 g/dL (14.0-18.0); Mean Corpuscular HGB CONC 33.8 g/dL (32.0-36.0); Mean Corpuscular Hemoglobin 29.6 pg (27.0-31.0); Mean Corpuscular Volume 87.6 fL (78.0-98.0); Mean Platelet Volume 10.5 fL (7.4-10.4); Platelet Count 225 thou/uL (130-400); RBC Distribution Width 12.8 % (11.5-14.5); Red Blood Cell (RBC) Count 5.03 mill/uL (4.70-6.10); White Blood Cell (WBC) Count 7.2 thou/uL (4.8-10.8)
[2018-02-22 07:24] LABS: ALT (SGPT) 14 U/L (8-55); AST (SGOT) 14 U/L (5-34); Albumin 3.9 g/dL (3.5-5.0); Alkaline Phosphatase 53 U/L (40-150); Anion Gap 12 mmol/L (10-20); BUN (Urea Nitrogen) 14 mg/dL (8.4-25.7); Bilirubin, Total 0.7 mg/dL (0.2-1.2); Calc. Creatinine Clearance 121 mL/min (70-130); Calcium 9.1 mg/dL (7.8-10.44); Carbon Dioxide 30 mmol/L (22-29); Chloride 102 mmol/L (98-107); Estimated GFR-MDRD 81; Globulin 3.1 g/dL (2.4-3.5); Glucose 112 mg/dL (70-105); Magnesium 2.3 mg/dL (1.6-2.6); Potassium 3.7 mmol/L (3.5-5.1); Sodium 140 mmol/L (136-145)
[2018-02-22] MEDS ORDERED: Meclizine HCl 25 MG TAB PO PRN (07:50)
[2018-02-22] MEDS: Famotidine 20 MG TAB PO SCH (08:46)
[2018-02-22] MEDS ORDERED: Atenolol 50 MG TAB PO SCH (09:00)
[2018-02-22] MEDS ORDERED: Atorvastatin Calcium 10 MG TAB PO SCH (09:00)
[2018-02-22] MEDS ORDERED: Chlorthalidone 25 MG TAB PO SCH (09:00)
[2018-02-22] MEDS ORDERED: Lisinopril 20 MG TAB PO SCH (09:00)
[2018-02-22] MEDS ORDERED: Enoxaparin Sodium 30 MG/0.3 ML SYRINGE SC SCH (09:00)
[2018-02-22] MEDS ORDERED: Amlodipine 10 MG TAB PO SCH (09:00)
[2018-02-22] MEDS ORDERED: Furosemide 40 MG/4 ML VIAL SLOW IVP SCH (09:00)
[2018-02-22] MEDS ORDERED: Aspirin 325 mg Enteric Coated Tablet PO SCH (09:00)
--- NOTE | 2018-02-22 14:19 | NM ---
MYOCARDIAL PERFUSION SCAN: DATE: 02/22/2018. PROVIDED CLINICAL HISTORY: Chest pain. RADIOPHARMACEUTICAL: 31 mCi Technetium 99m labeled sestamibi IV stress. 9.9 mCi Technetium 99m labeled sestamibi IV rest. FINDINGS: There is normal, homogeneous distribution of the radiotracer throughout the left ventricular myocardi um at stress and rest. Gated data demonstrate normal myocardial wall motion and thickening with calc ulated LEVF of 64%. TID is 1.14. IMPRESSION: 1. No scintigraphic evidence for ischemia. 2. Left ventricular ejection fraction 64%. POS: PRECIOUS
--- NOTE | 2018-02-22 15:07 | PDOC.EVN ---
Event Note - Event Note Event Note: Mr. Madrid was seen with Ms. Yuli MOYA. He was placed in Observation due to Dyspnea. He had one short episode of atypical CP. His physical exam is unremarkable, with normal heart sounds, no murmurs, no no pedal edema. Stress test and Echo were reviewed. Agree with plan outlined by Ms. Roldan.
[2018-02-22 15:51] VITALS: BP 147/75; TEMP 98.2
--- NOTE | 2018-02-23 04:00 | DIS ---
DATE OF ADMISSION: 02/21/2018 DATE OF DISCHARGE: 02/22/2018 DISCHARGE DIAGNOSES: 1. Congestive heart failure. 2. Chest pain, resolved. 3. Hypertension. 4. Obesity. PRIMARY CARE PHYSICIAN: Dr. Wiseman. CONSULTING PHYSICIAN: Dr. Broussard of Cardiology. CODE STATUS: Full-assist patient. HOSPITAL COURSE: This is a 57-year-old male, presenting with episode of atypical chest pain that resolved quickly. He has known history of hypertension, otherwise no coronary artery disease. The patient noted to have nonspecific T-waves on EKG. A chest x-ray showed prominent pulmonary vasculature; however, no pulmonary edema present. He also had an enlarged heart, therefore, deemed to have signs and symptoms of congestive heart failure. He was admitted for further investigations and to been seen by Cardiology. Troponins were negative. He underwent studies including stress test and echocardiogram; both negative for any evidence of ischemia. He was noted to have a normal ejection fraction. He also had no further symptoms of chest pain. The patient saw Dr. Broussard and without any complaints. PROCEDURES: 1. Chest x-ray done on 02/21/2018. Impression, cardiomegaly and prominence of pulmonary vasculature. Correlated for congestive heart failure. 2. Stress test nuclear medicine on 02/22/2018. Impression, no scintigraphic evidence for ischemia. Left ventricular ejection fraction is 64%. 3. Echocardiogram done on 02/22/2018. Summary, ejection fraction estimated at 60% to 65%. Normal right ventricular size and function. Left atrium [id number] dilated. Normal right atrium size. Mild mitral regurgitation present. Aortic valve appears tricuspid. Mild tricuspid regurgitation. Mild pulmonic regurgitation. LABORATORY STUDIES: Done on 02/22/2018. White blood count 7.2, hemoglobin 14.9 , hematocrit 44.1, and platelets 225. Electrolytes unremarkable. Glucose 112. Calcium 9.1, magnesium 2.3. LFTs unremarkable. CK-MB 1.4 on 02/21/2018. Troponin I 0.117 on 02/21/2018, 0.115 on 02/21/2018. BNP 332.7. REVIEW OF SYSTEMS: CONSTITUTIONAL: Denies fevers or chills. HEENT: Denies any eye pain or vision changes. No runny nose or sore throat. No headaches. No difficulty swallowing. CARDIOVASCULAR: No further episodes of chest pain. Denies any palpitations. RESPIRATORY: At present, denies any shortness of breath. No cough. GASTROINTESTINAL: Denies any abdominal pain, nausea, or vomiting. Denies any bowel changes. GENITOURINARY: Male. Denies any dysuria or hematuria. No urgency or frequency. MUSCULOSKELETAL: No pain. No injury or trauma. SKIN: Normal, warm, and dry. No rash or skin changes. PHYSICAL EXAMINATION: VITAL SIGNS: Temperature 98.2, pulse 76, respirations 20, O2 saturation 94% on room air, and blood pressure 147/75. HEENT: Normocephalic and atraumatic. Pupils are equal, round, and reactive to light. Sclerae are without icterus. Oropharynx is clear. NECK: Supple without lymphadenopathy. LUNGS: Clear to auscultation bilaterally. CARDIOVASCULAR: Regular rate and rhythm without audible murmurs. ABDOMEN: Obese, soft, nondistended. Normoactive bowel sounds present. Nontender to palpation. EXTREMITIES: No clubbing, cyanosis, or edema. Full range of motion in all limbs. NEUROLOGIC: Nonfocal. ALLERGIES: NO KNOWN DRUG ALLERGIES. HOME MEDICATIONS: 1. Simvastatin 40 mg p.o. at bedtime. 2. Hydralazine 50 mg p.o. t.i.d. 3. Hydrochlorothiazide 25 mg p.o. daily. 4. Atenolol 100 mg p.o. daily. 5. Aspirin 325 mg p.o. daily. 6. Meclizine 25 mg p.o. every 8 hours as needed. 7. Lisinopril 40 mg p.o. daily. 8. Chlorthalidone 25 mg p.o. daily. CONDITION AT DISCHARGE: The patient is stable and back to baseline without any complaints. No further episodes of chest pain. Has had no shortness of breath during this hospital stay. Has not had any lower extremity edema. No signs or symptoms of fluid overload. DISPOSITION: Discharged to home. DIET: Heart-healthy diet recommended. ACTIVITY: As tolerated. FOLLOWUP: 1. Referred to Dr. Broussard of Cardiology as an outpatient given CHF. 2. Follow up with primary care physician within 1 to 2 weeks. The patient's case discussed with Dr. Owen, who is in agreement with plans for discharge. The patient also happy with plans for discharge and plans to follow up as an outpatient with both his primary care physician and Dr. Broussard or at his convenience. Job ID: [id number] MTDD
--- NOTE | 2018-02-28 13:25 | EKG ---
Test Reason : Blood Pressure : / mmHG Vent. Rate : 065 BPM Atrial Rate : 065 BPM P-R Int : 160 ms QRS Dur : 084 ms QT Int : 416 ms P-R-T Axes : 055 044 029 degrees QTc Int : 432 ms Normal sinus rhythm Possible Left atrial enlargement Nonspecific T wave abnormality Abnormal ECG Confirmed by MICHAEL BURTON DO ([id number]), video news editor IGGY ROLLE ([id number]) on 02/28/2018 1:25:23 PM Referred By: Confirmed By:MICHAEL BURTON DO
== END 2018-02-22 16:46 | disposition home or self-care (01) ==
LOC: ERS 13:08 → 2SW 15:13
PROVIDERS: ADMIT Internal Medicine; ATTEND Internal Medicine
DX: R06.02 Shortness of breath (principal); R07.89 Other chest pain; I11.0 Hypertensive heart disease with heart failure; I50.9 Heart failure, unspecified; M19.90 Unspecified osteoarthritis, unspecified site; I08.3 Combined rheumatic disorders of mitral, aortic and tricuspid valves; E66.9 Obesity, unspecified; Z68.38 Body mass index [BMI] 38.0-38.9, adult; Z86.73 Personal history of transient ischemic attack (TIA), and cerebral infarction without residual deficits; Z79.899 Other long term (current) drug therapy; Z79.82 Long term (current) use of aspirin
CPT/HCPCS: 36415; 71045; 78452; 80053; 82553; 83735; 83880; 84484; 85025; 93005; 93017; 93306; 96374; 96375; 96376; A9500; G0378; J0153; J0360; J1650; J1940

== ENCOUNTER 2018-08-24 17:38 | Inpatient (IN) | payer OTHER, SELFPAY ==
--- NOTE | 2018-08-24 18:00 | RAD ---
EXAM: Single view of the chest HISTORY: Nausea and dizziness COMPARISON: 02/21/2018 FINDINGS: Single view of the chest shows a normal sized cardiomediastinal silhouette. There is no nate dence of consolidation, mass, or pleural effusion. The bones are unremarkable. IMPRESSION: No evidence of acute cardiopulmonary disease
[2018-08-24 18:04] LABS: Hemoglobin 14.3 g/dL (14.0-18.0); Red Blood Cell (RBC) Count 4.66 mill/uL (4.70-6.10); White Blood Cell (WBC) Count 9.4 thou/uL (4.8-10.8)
[2018-08-24 18:05] LABS: #Eosinphils 0.2 thou/uL (0.0-0.7); #Lymphocytes 2.2 thou/uL (1.20-3.40); #Monocytes 0.8 thou/uL (0.11-0.59); #Neutrophils 6.2 thou/uL (1.40-6.50); %Basophils 0.4 % (0.0-1.0); %Eosinophils 1.7 % (0.0-10.0); %Lymphocytes 23.5 % (21.0-51.0); %Monocytes 8.4 % (0.0-10.0); Mean Corpuscular HGB CONC 35.7 g/dL (32.0-36.0); Mean Corpuscular Hemoglobin 30.7 pg (27.0-31.0); Mean Corpuscular Volume 86.1 fL (78.0-98.0); Mean Platelet Volume 9.9 fL (7.4-10.4); Platelet Count 233 thou/uL (130-400); RBC Distribution Width 12.6 % (11.5-14.5)
[2018-08-24 18:29] LABS: ALT (SGPT) 14 U/L (8-55); AST (SGOT) 13 U/L (5-34); Albumin 3.9 g/dL (3.5-5.0); Alkaline Phosphatase 50 U/L (40-150); Anion Gap 15 mmol/L (10-20); BUN (Urea Nitrogen) 12 mg/dL (8.4-25.7); Bilirubin, Total 0.5 mg/dL (0.2-1.2); CK (CPK) 137 U/L (30-200); Calc. Creatinine Clearance 0 mL/min (70-130); Calcium 8.8 mg/dL (7.8-10.44); Carbon Dioxide 24 mmol/L (22-29); Chloride 100 mmol/L (98-107); Estimated GFR-MDRD 70; Globulin 2.4 g/dL (2.4-3.5); Glucose 200 mg/dL (70-105); Potassium 3.2 mmol/L (3.5-5.1); Protein, Total 6.3 g/dL (6.0-8.3); Sodium 136 mmol/L (136-145)
[2018-08-24 18:49] LABS: CKMB 1.5 ng/mL (0-6.6)
[2018-08-24] MEDS ORDERED: Aspirin Chewable 81 MG TAB ONE (19:28)
[2018-08-24] MEDS ORDERED: Nitroglycerin 2% Ointment 1 INCH/1 GM Packet ONE (19:28)
[2018-08-24] MEDS ORDERED: Enoxaparin Sodium 30 MG/0.3 ML SYRINGE ONE (19:41)
[2018-08-24] MEDS ORDERED: Enoxaparin Sodium 100 MG/ML SYRINGE ONE (19:41)
[2018-08-24] MEDS ORDERED: Enoxaparin Sodium 120 MG/0.8 ML SYRINGE SC SCH (20:15)
[2018-08-24] MEDS ORDERED: Acetaminophen 650 MG Suppository PR PRN (20:47)
[2018-08-24] MEDS ORDERED: Ondansetron ODT 4 MG TAB PO PRN (20:47)
[2018-08-24] MEDS ORDERED: Acetaminophen 325 MG TAB PO PRN (20:47)
[2018-08-24] MEDS ORDERED: Ondansetron PF 4 MG/2 ML Vial IVP PRN (20:47)
[2018-08-24 21:20] LABS: Troponin I 0.167 ng/mL (< 0.028)
[2018-08-24] MEDS ORDERED: HumaLOG 300 UNITS/3 ML VIAL SC PRN (22:10)
[2018-08-24] MEDS ORDERED: Dextrose 50% Abboject 50 ML SYRINGE SLOW IVP PRN (22:10)
[2018-08-24] MEDS ORDERED: Dextrose 5% in Water 1,000 ML IV PRN (22:10)
[2018-08-24 22:28] LABS: Hemoglobin A1c 6.1 % (4.0-6.0)
--- NOTE | 2018-08-24 22:58 | HP ---
PRIMARY CARE DOCTOR: Dr. Wiseman. CODE STATUS: Full code. TIME OF EVALUATION: 8:10 p.m. CHIEF COMPLAINT: Dizziness. HISTORY OF PRESENT ILLNESS: A 57-year-old male patient with past medical history of kidney stones, hypertension, previous TIA, came to the hospital after having an episode of dizziness, feeling weak, associated with nausea very high blood pressure and after he took the pills, he rerecorded, the diastolic blood pressure went from 110 to the 60s and he felt it was a very quick drop and probably was responsible for his symptoms. The symptoms lasted until the patient got to the hospital and has been slowly getting better. REVIEW OF SYSTEMS: CONSTITUTIONAL: The patient has no fever or chills. The patient reported generalized weakness. RESPIRATORY: No cough or sputum production. The patient has shortness of breath. CARDIOVASCULAR: No chest pain. The patient has no palpitation. GASTROINTESTINAL: The patient has nausea. No vomiting, diarrhea, or abdominal pain. MARKETING SERVICES VICE PRESIDENT: The patient was dizzy. No headache. The patient was feeling lightheaded. GENITOURINARY: No burning on urination. EXTREMITIES: No leg swelling. All other systems were reviewed and negative except for the findings mentioned above. PAST MEDICAL HISTORY: As mentioned in the HPI. PAST SURGICAL HISTORY: Back surgery, left hand surgery, lithotripsy. PSYCHIATRIC HISTORY: No previous psych history. FAMILY HISTORY:Reviewed and no contributory to current presentation. SOCIAL HISTORY: The patient denies alcohol or drug use. No smoking history. KNOWN ALLERGIES: No known drug allergies. REPORTED MEDICATIONS: 1. Atenolol. 2. Lisinopril. 3. Hydrochlorothiazide. 4. Hydralazine. PHYSICAL EXAMINATION: VITAL SIGNS: On presentation, blood pressure 158/87 with heart rate 91, respiratory rate was 18, temperature was 98, pain was 0/10, oxygen saturation was 98% on room air. GENERAL APPEARANCE: The patient is alert, oriented, in no acute distress. HEENT: Eyes, normal conjunctivae. Moist oral mucosa. Anicteric. No JVD. RESPIRATORY: Bilateral air entry. No rales. No wheezes. Symmetric expansion. CARDIOVASCULAR: Normal rate. Regular rhythm. No murmurs. No gallop. No edema. ABDOMEN: Soft. Normal bowel sounds. MUSCULOSKELETAL: Baseline range of motion and strength. No tenderness. SKIN: Warm, intact. No pallor. No rash. No redness. Capillary refill seems to be intact. NEURO: No evidence of any new focal weakness. Cranial nerves seems to be intact. PSYCH: The patient is in good mood. No anxiety. Optimal judgment. IMAGING STUDIES: EKG, normal sinus rhythm with a rate of 93 with MS 154, QRS 90 , QT corrected 534, left ventricular hypertrophy with some repolarization changes, this is changed from previous EKG. Chest x-ray was reviewed. The patient has no evidence of acute cardiopulmonary disease. LABORATORY DATA: Reviewed. The patient has white count of 9.4, hemoglobin 14.3 , MCV 86.1, platelet count 233. Chemistry; sodium 136, potassium 3.2, chloride 100, carbon dioxide 24, anion gap 15, BUN 12, creatinine 1.28, GFR 70, glucose 200, calcium 8.8, total bilirubin 0.5. LFTs were negative. Troponin initial was 0.162, second one 0.167. Beta-natriuretic peptide 131. ASSESSMENT AND PLAN: The patient will be placed in the hospital with following medical problems: 1. Acute coronary syndrome. Possible [id number] myocardial infarction. The patient has some mild elevation in troponin, also had some changes in the EKG with T-wave inversion in anterolateral leads. The patient has been given Lovenox. We have consulted Cardiology. 2. Hypertensive urgency on presentation, blood pressure well controlled, probably due to medication the patient took prior to admission. We will reconcile home medications once updated and adjust as needed to keep it in good control. 3. Hyperlipidemia. Low-cholesterol diet is advised. The patient will continue to be taking simvastatin. 4. Hypokalemia. Potassium 3.2. We will replace electrolytes as needed. 5. Hyperglycemia. The patient denies any history of diabetes. We will do hemoglobin A1c. We will follow levels. We will place the patient on sliding scale to monitor blood sugar as inpatient especially in the scenario of acute coronary syndrome. 6. Deep venous thrombosis prophylaxis. 7. Obesity. Advised to lose weight. Job ID: [id number] [facility]
[2018-08-24 23:47] VITALS: BMI 38.2
[2018-08-25 00:31] LABS: Troponin I 0.189 ng/mL (< 0.028)
[2018-08-25 03:18] LABS: #Eosinphils 0.2 thou/uL (0.0-0.7); #Lymphocytes 2.2 thou/uL (1.20-3.40); #Monocytes 0.8 thou/uL (0.11-0.59); #Neutrophils 4.7 thou/uL (1.40-6.50); %Basophils 0.5 % (0.0-1.0); %Eosinophils 1.9 % (0.0-10.0); %Monocytes 10.2 % (0.0-10.0); %Neutrophils 59.4 % (42.0-75.0); Hemoglobin 13.6 g/dL (14.0-18.0); Mean Corpuscular HGB CONC 34.1 g/dL (32.0-36.0); Mean Corpuscular Hemoglobin 29.7 pg (27.0-31.0); Mean Corpuscular Volume 87.1 fL (78.0-98.0); Mean Platelet Volume 9.9 fL (7.4-10.4); Platelet Count 224 thou/uL (130-400); RBC Distribution Width 12.8 % (11.5-14.5); Red Blood Cell (RBC) Count 4.58 mill/uL (4.70-6.10)
[2018-08-25 03:40] LABS: Troponin I 0.233 ng/mL (< 0.028)
[2018-08-25 03:51] LABS: Anion Gap 10 mmol/L (10-20); BUN (Urea Nitrogen) 13 mg/dL (8.4-25.7); Calc. Creatinine Clearance 117 mL/min (70-130); Calcium 9.1 mg/dL (7.8-10.44); Carbon Dioxide 29 mmol/L (22-29); Chloride 102 mmol/L (98-107); Estimated GFR-MDRD 80; Glucose 140 mg/dL (70-105); Potassium 3.3 mmol/L (3.5-5.1); Sodium 138 mmol/L (136-145)
[2018-08-25] MEDS ORDERED: Chlorthalidone 25 MG TAB PO SCH (09:00)
[2018-08-25] MEDS ORDERED: Hydrochlorothiazide 25 MG TAB PO SCH (09:00)
[2018-08-25] MEDS ORDERED: Enoxaparin Sodium 40 MG/0.4 ML SYRINGE SC SCH (09:00)
[2018-08-25] MEDS ORDERED: hydrALAZINE 25 MG TAB PO SCH ×4 (09:00→11:30)
--- NOTE | 2018-08-25 09:10 | PDOC.CTH ---
Cardiology Progress Note - Subjective This is a 57 yo gentleman who presented to the ED last night with symptoms of N/ V and dizziness after taking his BP meds yesterday afternoon. He checked his BP at home and noted it was in the 160s, then took his meds and re-checked his BP and noted it to be in the 120s systolic. He attributed his symptoms to this and decided to go into the ER for evaluation. At first he denies CP but on further questioning states he did have some substernal chest pressure yesterday which he rates at 5/10. No pain now. He states the pain came and went randomly lasting a few minutes at a time. Walking actually made it better. He is having no pain this morning or overnight. PMH: HTN, TIA, HLD, pre-diabetes PSH: L hand, Lithotripsy Meds: atenolol, lisinopril, HCTZ, chlorthaldione, ASA, simvastatin, hydralazine Allergies: NKDA Soc Hx: no smoking, alcohol, or drugs Fm Hx: Mother had IL at age 71 REVIEW OF SYSTEMS: Gen: no fever, chills, or sweats Neuro: no numbness/tingling, no weakness, denies headache Resp: no cough, no SOB, no wheeze Card: see hpi GI: N/V now resolved MSK: no myalgias, no joint pain/stiffness Heme: no blood thinners Skin: no rash, no erythema PHYSICAL EXAMINATION: General: NAD, alert and oriented x3 HEENT: PERRLA, EOMI, normal sclera Neck: Supple. Full ROM. Heart/Cardiovascular System: RRR, 2/6 systolic murmur, Cap refill < 3 seconds, no rub Lungs/Respiratory System: clear to auscultation bilaterally. No increased work of breathing. Room air. Abdomen/Gastro-Intestinal System: no abdominal tenderness, normal bowel sounds Extremities: Warm extremities. No cyanosis or edema. Neuro: No gross deficits appreciated Psychiatry: Awake, Alert and cooperative with exam Skin: No lesions, rashes, or ulcers Musculoskeletal: Full ROM - Objective Vital Signs Temp Pulse Resp BP Pulse Ox 08/25/18 07:05 98 F 64 18 165/102 H 99 08/25/18 04:00 98.7 F 76 18 161/96 H 96 08/24/18 23:10 98.0 F 87 16 174/99 H 97 Weight 117.299 kg - Labs Result Diagrams: 08/25/18 03:08 08/25/18 03:08 Troponin/CKMB CK-MB (CK-2) 1.5 ng/mL (0-6.6) 08/24/18 17:58 Troponin I 0.310 ng/mL (< 0.028) H* 08/25/18 06:15 - Assessment/Plan # NSTEMI - trop 0.162 -> 0.189 -> .233 -> .310 - EKG shows LVH, t wave inversions - therapeutic lovenox x1 upon admission - JAMIE score: 3 elevated trop, ASA, >3 RF: pre-diab, HTN, HLD - normal stress Feb 2018, echo 60-65% EF Feb 2018 - added FLP to morning labs - will re-check troponin now, if continues to rise will plan for cath # HTN - on chlorthaldione, HCTZ, atenolol, hydralazine, lisinpril - stopped HCTZ and increased dose of chlorthaldione # HLD - stopped simvastatin switched to atorvastatin 80mg
[2018-08-25 09:26] LABS: Cardiac Risk 3.9 (Less than 4.5)
[2018-08-25] MEDS: Aspirin 325 mg Enteric Coated Tablet PO SCH (09:54)
[2018-08-25] MEDS: Atenolol 50 MG TAB PO SCH (09:54)
[2018-08-25] MEDS: Lisinopril 20 MG TAB PO SCH (09:55)
[2018-08-25 13:39] LABS: Troponin I 0.399 ng/mL (< 0.028)
[2018-08-25] MEDS ORDERED: Lidocaine 1% (PF) 30 ML VIAL ONE (13:55)
[2018-08-25] MEDS ORDERED: Verapamil 5 MG/2 ML VIAL ONE (13:56)
[2018-08-25] MEDS ORDERED: Heparin 10,000 UNITS/1 ML VIAL ONE (13:56)
[2018-08-25] MEDS ORDERED: Nitroglycerin 100MG/250ML BOT 250 ML ONE (13:56)
[2018-08-25] MEDS ORDERED: Communication Order-Pharmacy FS SCH ×2 (14:00)
[2018-08-25] MEDS: Aspirin 325 MG TAB PO SCH (14:25)
[2018-08-25] MEDS ORDERED: Midazolam HCl 2 mg/2 ml Vial ONE (14:58)
[2018-08-25] MEDS ORDERED: Sodium Chloride 0.9% 200 ML IV PRN (16:01)
[2018-08-25] MEDS ORDERED: Acetaminophen/Codeine 30-300mg Tablet PO PRN ×2 (16:01)
[2018-08-25] MEDS: hydrALAZINE 25 MG TAB PO SCH ×2 (16:18→20:18)
[2018-08-25] MEDS ORDERED: hydrALAZINE 20 MG/ML VIAL SLOW IVP PRN (16:44)
--- NOTE | 2018-08-25 16:45 | CON ---
DATE OF CONSULTATION: 08/25/2018 INDICATION FOR CONSULTATION: A 57-year-old patient with new onset of complaints of chest heaviness, abnormal cardiac enzymes, hypertension, and some complaints of nausea and dizziness, appears he may have suffered a non-ST segment elevation myocardial infarction type 2. He does have a history of hypertension as well as prediabetic and has hyperlipidemia. He has been advised to undergo cardiac catheterization. He has been complaining of some chest discomfort and tightness with some substernal chest discomfort, which he describes as being 5/10. He is actually pain free at this time, but enzymes continue to creep upwards, is now 0.339. I will advise him to undergo cardiac catheterization. PAST MEDICAL HISTORY: Please refer to the notes already dictated by the resident Dr. Collier. REVIEW OF SYSTEMS: Please refer to the notes already dictated by the resident Dr. Collier. SOCIAL HISTORY: Please refer to the notes already dictated by the resident Dr. Collier. FAMILY HISTORY: Please refer to the notes already dictated by the resident Dr. Collier. ALLERGIES: PLEASE REFER TO THE NOTES ALREADY DICTATED BY THE RESIDENT DR. COLLIER. MEDICATIONS: Please refer to the notes already dictated by the resident Dr. Collier. PHYSICAL EXAMINATION: GENERAL: Reveals a well-developed, well-nourished, overweight gentleman, who is actually in no acute distress at this time. VITAL SIGNS: Stable. Blood pressure is 162/78, has been high at 174/94. He states usually at home, his blood pressure is not significantly elevated, but is under good control. Temperature is 97.8, heart rate 61, and respiratory rate 18. HEENT: Showed the head to be normocephalic and atraumatic. Carotid pulses are present. I could not hear any significant bruits. CHEST: Clear to auscultation. Did not hear rales, rhonchi, or wheezing. CARDIOVASCULAR: Reveals a regular rate and rhythm. He has normal S1 and S2. He has a soft systolic murmur at the upper sternal border of the aortic area, most likely due to the aortic valve sclerosis. There were no significant murmurs, heaves, thrills, bruits, or rubs. ABDOMEN: Obese. He has no tenderness. I cannot palpate any masses. EXTREMITIES: Show no clubbing, cyanosis, or edema. Pedal pulses are difficult to palpate, but popliteal pulses are present. NEUROLOGIC: The patient appears to be intact. SKIN: Warm and dry. LABORATORY DATA: Shows a creatinine 1.14, blood sugar was 140, and potassium of 3.3. Troponin I as noted was 0.3 and now increased up to 0.399. His LDL level was 89. ASSESSMENT AND PLAN: At this time, given his overall risk factors, we will schedule him for cardiac catheterization today. I have explained to him the procedure and the risks to include bleeding, infection, possible myocardial infarction, CVA, renal insufficiency, allergic contrast reaction, and the possibility of . He understands agrees to proceed. We will plan for cardiac catheterization to fully evaluate his coronary status. As far as his other diagnosis and history, these will be dealt with by the primary care service such as hypertension and prediabetes. Job ID: [id number]
[2018-08-25] MEDS: Nitroglycerin 0.4 MG TAB (25 Tab Bottle) SL PRN ×3 (18:03→18:27)
[2018-08-25] MEDS: Nitroglycerin 2% Ointment 1 INCH/1 GM Packet TOP SCH (18:41)
[2018-08-25] MEDS: Atorvastatin Calcium 40 MG TAB PO SCH (20:17)
--- NOTE | 2018-08-25 20:51 | PDOC.PN ---
- Subjective Encounter Start Date: 08/25/18 Encounter Start Time: 10:00 Feels ok. Wants to eat. Believes his blood pressure is related to not getting his morning meds at his usual time. - Objective Resuscitation Status - Order Detail: 08/24/18 20:47 Resuscitation Status Routine Resuscitation Status: FULL: Full Resuscitation Vital Signs & Weight: Vital Signs (12 hours) Temp Pulse Resp BP BP Pulse Ox 08/25/18 20:18 74 150/78 H 08/25/18 18:00 82 16 163/88 H 08/25/18 16:18 62 08/25/18 16:00 98.2 F 62 16 189/112 H 97 08/25/18 11:58 97.8 F 61 18 162/78 H 99 08/25/18 11:56 66 08/25/18 09:56 66 174/94 H 97 08/25/18 09:54 64 Weight Weight 258 lb 9.6 oz I&O: 08/24/18 08/25/18 08/26/18 06:59 06:59 06:59 Intake Total 240 Balance 240 Result Diagrams: 08/25/18 03:08 08/25/18 03:08 Additional Labs: Accuchecks 08/25/18 08/25/18 08/25/18 16:53 10:27 05:49 POC Glucose 101 96 113 H Phys Exam - Physical Examination Constitutional: NAD Respiratory: no wheezing, no rales, no rhonchi, clear to auscultation bilateral Cardiovascular: RRR, no significant murmur Gastrointestinal: soft, non-tender, no distention, positive bowel sounds Musculoskeletal: no edema Neurological: non-focal Psychiatric: normal affect, A&O x 3 Dx/Plan (1) Elevated troponin Code(s): R74.8 - ABNORMAL LEVELS OF OTHER SERUM ENZYMES Status: Acute (2) Hypertension Code(s): I10 - ESSENTIAL (PRIMARY) HYPERTENSION Status: Chronic (3) Obesity (BMI 30-39.9) Code(s): E66.9 - OBESITY, UNSPECIFIED Status: Chronic (4) Chest pain Code(s): R07.9 - CHEST PAIN, UNSPECIFIED Status: Resolved - Plan * Had elevated BP and elevated troponin. * Nitropaste. * Cardiology consult. * Will add antihypertensives and PRN if needed.
[2018-08-25] MEDS ORDERED: Atorvastatin Calcium 20 MG TAB PO SCH (21:00)
[2018-08-26] MEDS: Aspirin 325 MG TAB PO SCH (08:42)
[2018-08-26] MEDS: Lisinopril 20 MG TAB PO SCH (08:42)
[2018-08-26] MEDS: Atenolol 50 MG TAB PO SCH (08:42)
[2018-08-26] MEDS: Aspirin 325 mg Enteric Coated Tablet PO SCH (08:42)
[2018-08-26] MEDS: hydrALAZINE 25 MG TAB PO SCH ×3 (08:43→20:16)
[2018-08-26] MEDS: Chlorthalidone 25 MG TAB PO SCH (08:43)
[2018-08-26] MEDS: Nitroglycerin 2% Ointment 1 INCH/1 GM Packet TOP SCH (08:44)
--- NOTE | 2018-08-26 12:29 | PDOC.CTH ---
Cardiology Progress Note - Subjective The pt seen and examined. No overnight events. No cardiac complaints. Per RN , the pt walked around the nursing station without any cardiac complaints. - Objective Vital Signs Temp Pulse Resp BP BP BP Pulse Ox 08/26/18 12:22 61 166/91 H 08/26/18 12:19 98.2 F 66 16 183/88 H 97 08/26/18 08:43 68 08/26/18 08:42 68 150/78 H 08/26/18 07:36 98.3 F 68 16 172/86 H 95 08/26/18 03:05 99.6 F 80 16 141/77 H 94 L 08/26/18 02:31 99 Weight 258 lb 9.6 oz 08/25/18 08/26/18 08/27/18 06:59 06:59 06:59 Intake Total 240 480 Balance 240 480 - Physical Examination General/Neuro: alert & oriented x3 Neck: no JVD present Lungs: CTA Heart: RRR Abdomen: soft Extremities: other: (No edema; Rt Radial INFORMAL WAITER/WAITRESS without any drainage or hematoma) - Telemetry Telemetry Rhythm: SR - Labs Result Diagrams: 08/25/18 03:08 08/25/18 03:08 Troponin/CKMB CK-MB (CK-2) 1.5 ng/mL (0-6.6) 08/24/18 17:58 Troponin I 0.399 ng/mL (< 0.028) H* 08/25/18 12:53 - Assessment/Plan 1. CAD with s/p LHC on 08/25/2018 with no intervention , mild CAD. Medical management.- stable; On BBlocker, BOBBY, ASA 325mg qd 2. HTN - will start Norvasc 5mg qd from today; 3. HLD - on Lipitor 80mg qd 4. Pre-DM 5. Hx of TIA 6. Obesity MAR reviewed * Once his BP is more controlled; the pt is stable to d/c. The pt will f/u with Dr ann' office within 2-4 wks. Pt. seen and eval. by me. I agree with the A/P by the COPIER OPERATOR.Chest clear. RRR. Bp is still a problem. Okay to d/c when the BP is stable. Review of Systems - Review of Systems Constitutional: reports: no symptoms reported EENTM: reports: no symptoms reported Respiratory: reports: no symptoms reported Cardiac (ROS): reports: no symptoms reported ABD/GI: reports: no symptoms reported : reports: no symptoms reported
[2018-08-26] MEDS ORDERED: Amlodipine 5 MG TAB PO SCH ×2 (13:00)
--- NOTE | 2018-08-26 13:55 | PDOC.PN ---
- Subjective Encounter Start Date: 08/26/18 Encounter Start Time: 10:45 Doing well. Feels well. No complaints. Has been out of bed to BR. No problems. - Objective Resuscitation Status - Order Detail: 08/24/18 20:47 Resuscitation Status Routine Resuscitation Status: FULL: Full Resuscitation Vital Signs & Weight: Vital Signs (12 hours) Temp Pulse Resp BP BP BP Pulse Ox 08/26/18 12:22 61 166/91 H 08/26/18 12:19 98.2 F 66 16 183/88 H 97 08/26/18 08:43 68 08/26/18 08:42 68 150/78 H 08/26/18 07:36 98.3 F 68 16 172/86 H 95 08/26/18 03:05 99.6 F 80 16 141/77 H 94 L 08/26/18 02:31 99 Weight Weight 258 lb 9.6 oz I&O: 08/25/18 08/26/18 08/27/18 06:59 06:59 06:59 Intake Total 240 480 Balance 240 480 Result Diagrams: 08/25/18 03:08 08/25/18 03:08 Additional Labs: Accuchecks 08/25/18 16:53 POC Glucose 101 Phys Exam - Physical Examination Constitutional: NAD Respiratory: no wheezing, no rales, no rhonchi, clear to auscultation bilateral Cardiovascular: RRR, no significant murmur, no rub Gastrointestinal: soft, non-tender, no distention, positive bowel sounds Musculoskeletal: no edema Neurological: non-focal, moves all 4 limbs Psychiatric: normal affect, A&O x 3 Skin: normal turgor Dx/Plan (1) Elevated troponin Code(s): R74.8 - ABNORMAL LEVELS OF OTHER SERUM ENZYMES Status: Acute (2) Hypertension Code(s): I10 - ESSENTIAL (PRIMARY) HYPERTENSION Status: Chronic (3) Obesity (BMI 30-39.9) Code(s): E66.9 - OBESITY, UNSPECIFIED Status: Chronic (4) Chest pain Code(s): R07.9 - CHEST PAIN, UNSPECIFIED Status: Resolved (5) Non-occlusive coronary artery disease Code(s): I25.10 - ATHSCL HEART DISEASE OF [place] CORONARY ARTERY W/O ANG PCTRS Status: Acute - Plan * Doing well post cath. * Medical management for non occlusive CAD. * Needs better BP control. * Cards added Amlodipine today. * Can DC when BP reasonably controlled.
[2018-08-26] MEDS ORDERED: NIFEdipine XL 30 MG TAB PO SCH (14:00)
[2018-08-26] MEDS: Atorvastatin Calcium 40 MG TAB PO SCH (20:17)
--- NOTE | 2018-08-27 08:53 | PDOC.CTH ---
Cardiology Progress Note - Subjective The pt seen and examined. No overnight events. No cardiac complaints. - Objective Vital Signs Temp Pulse Resp BP BP Pulse Ox 08/27/18 03:30 98.6 F 75 20 147/73 H 96 08/26/18 23:15 71 153/82 H Weight 258 lb 9.6 oz 08/26/18 08/27/18 08/28/18 06:59 06:59 06:59 Intake Total 240 1310 Output Total 650 Balance 240 660 - Physical Examination General/Neuro: alert & oriented x3 Neck: no JVD present Lungs: CTA Heart: RRR Abdomen: soft Extremities: other: (No edema) - Telemetry Telemetry Rhythm: SR - Labs Result Diagrams: 08/25/18 03:08 08/25/18 03:08 Troponin/CKMB CK-MB (CK-2) 1.5 ng/mL (0-6.6) 08/24/18 17:58 Troponin I 0.399 ng/mL (< 0.028) H* 08/25/18 12:53 - Assessment/Plan 1. CAD with s/p C on 08/25/2018 with no intervention , mild CAD. Medical management.- stable; On BBlocker, BOBBY, ASA 325mg qd 2. HTN - will increase Norvasc 5mg from qd to BID and Hydralazine from 75mg to 100mg TID from today; 3. HLD - on Lipitor 80mg qd 4. Pre-DM 5. Hx of TIA 6. Obesity MAR reviewed * Okay to d/c when the BP is stable. The pt will f/u with Dr ann' office within 2-4 wks. However, he may not be able to afford to f/u with Dr Ann' office due to his insurance (per the pt.) The pt was strongly recommend to f/u with his PCP within 2 wks. Pt. seen and eval. by me.I agree with the a/P by the REFINERY OPERATOR [employer] [facility].BP still fluctuates.He can f/u with his primary MD for BP control or see me in the office. Chest clear. RRR. Review of Systems - Review of Systems Constitutional: reports: no symptoms reported EENTM: reports: no symptoms reported Respiratory: reports: no symptoms reported Cardiac (ROS): reports: no symptoms reported ABD/GI: reports: no symptoms reported : reports: no symptoms reported Musculoskeletal: reports: no symptoms reported
[2018-08-27] MEDS ORDERED: Amlodipine 5 MG TAB PO SCH ×2 (09:00)
[2018-08-27] MEDS ORDERED: hydrALAZINE 25 MG TAB PO SCH ×3 (09:00→15:00)
[2018-08-27] MEDS: hydrALAZINE 25 MG TAB PO SCH (09:52)
[2018-08-27] MEDS: Aspirin 325 mg Enteric Coated Tablet PO SCH (09:53)
[2018-08-27] MEDS: Atenolol 50 MG TAB PO SCH (09:53)
[2018-08-27] MEDS: Chlorthalidone 25 MG TAB PO SCH (09:54)
[2018-08-27] MEDS: Lisinopril 20 MG TAB PO SCH (09:54)
[2018-08-27] MEDS ORDERED: cloNIDine 0.1 MG TAB PO SCH ×2 (10:30→21:00)
[2018-08-27 12:16] VITALS: TEMP 99
--- NOTE | 2018-08-27 15:17 | PQF ---
CLINICAL DOCUMENTATION IMPROVEMENT CLARIFICATION FORM: ICD-10 Updated PLEASE DO AN ADDENDUM TO THE PROGRESS NOTE WITH ANY DOCUMENTATION UPDATES OR ADDITIONS AND CARRY THROUGH TO DC SUMMARY. THANK YOU. DATE: 08/27/18 ATTN: DR. DOUGHERTY Please exercise your independent, professional judgment in responding to the clarification form. Clinical indicators are provided on the bottom of this form for your review Please check appropriate box(s): AMI TYPE: [ X ] NSTEMI [ ] MA TYPE 2 [ ] DEMAND ISCHEMIA [ ] Other diagnosis In addition, please specify: Present on Admission (POA): X [ ] Yes [ ] No [ ] Unable to determine CLINICAL INDICATORS - SIGNS / SYMPTOMS / LABS H&P: "POSSIBLE NON- ST- ELEVATION MYOCARDIAL INFARCTION" CONSULTATION NOTE 08/25: "MAY HAVE SUFFERED A NON-ST SEGMENT ELEVATION MYOCARDIAL INFARCTION TYPE 2" TROPONINS 0.167 / 0.189 / 0.233 RISKS: HYPERTENSION TREATMENT: SERIAL LABS CARDIAC MONITORING CARDIOLOGY CONSULT CARDIAC CATHETERIZATION LOVENOX (ER) NITRO-BID TRANSDERMAL (ER) ASPIRIN (ER-PRESENT) (This form is maintained as a part of the permanent medical record) 2014 [employer]. All Rights Reserved [email or web address] Office: [phone] [facility]
[2018-08-27 15:23] VITALS: BP 152/79
--- NOTE | 2018-08-28 01:38 | DIS ---
DATE OF ADMISSION: 08/24/2018 DATE OF DISCHARGE: 08/27/2018 DISCHARGE DIAGNOSES: As of the followin. Elevated troponin. 2. Hypertension. 3. Obesity. 4. Chest pain. 5. Nonocclusive coronary artery disease. 6. Obesity. HOSPITAL COURSE: The patient is a 57-year-old male who initially presented to the hospital on August 24 with complaints of dizziness. Given the patient's history of hypertension and previous TIAs, he underwent a workup which indicated mildly elevated troponins. The patient the patient was seen by Cardiology. The patient underwent a cardiac cath, which did not require any acute intervention. He just had mild CAD. The patient's medications were adjusted, especially his blood pressure was adjusted and he was asked to follow up with his primary and also with Cardiology as outpatient. HOME MEDICATIONS: His home medications will be as the following. The patient will be on: 1. Lisinopril 40 mg daily. 2. Atenolol 100 mg daily. 3. Aspirin 325 daily. 4. Hydralazine 100 mg t.i.d. 5. Clonidine 0.1 b.i.d. 6. Chlorthalidone 50 mg daily. 7. Atorvastatin 80 mg daily. 8. Amlodipine 10 mg daily. PHYSICAL EXAMINATION: VITAL SIGNS: Temperature of 99.9, 75, 18, 95% on room air and 181/75, after clonidine 130/70. GENERAL: He is awake, alert, and oriented x3. Does not appear in distress. CV: S1, S2 present. No murmurs, rubs, or gallops. ABDOMEN: Soft and nontender. Bowel sounds are present x2. EXTREMITIES: No edema. FOLLOWUP: Again, he will be discharged home to follow up with his primary, especially with all of the med medications adjustments that were made. Job ID: [id number]
--- NOTE | 2018-08-28 21:10 | EKG ---
Test Reason : Blood Pressure : / mmHG Vent. Rate : 071 BPM Atrial Rate : 071 BPM P-R Int : 162 ms QRS Dur : 086 ms QT Int : 424 ms P-R-T Axes : 055 054 -13 degrees QTc Int : 460 ms Normal sinus rhythm Possible Left atrial enlargement T wave abnormality, consider inferolateral ischemia Prolonged QT Abnormal ECG When compared with ECG of 24-AUG-2018 17:48, (Unconfirmed) ST no longer depressed in Lateral leads T wave inversion less evident in Lateral leads QT has shortened Confirmed by Camron BREWER ([id number]) on 08/28/2018 9:10:36 PM Referred By: JONATHAN Confirmed By:Camron BREWER
--- NOTE | 2018-08-29 14:52 | EKG ---
Test Reason : Blood Pressure : / mmHG Vent. Rate : 093 BPM Atrial Rate : 093 BPM P-R Int : 152 ms QRS Dur : 090 ms QT Int : 426 ms P-R-T Axes : 052 046 -86 degrees QTc Int : 529 ms Normal sinus rhythm Possible Left atrial enlargement Prolonged QT Abnormal ECG Confirmed by FANG NARAYAN, AGUEDA ([id number]), technical writer and editor IGGY ROLLE ([id number]) on 08/29/2018 2:52:12 PM Referred By: Confirmed By:AGUEDA HEADLEY MD
== END 2018-08-27 19:06 | disposition home or self-care (01) | DRG 282 ==
LOC: ERS 17:38 → 2NO 18:54
PROVIDERS: ADMIT Family Medicine; ATTEND Family Medicine
PROC: 4A023N7 Measurement of Cardiac Sampling and Pressure, Left Heart, Percutaneous Approach (ICD-10-PCS; principal; 2018-08-24)
PROC: B2111ZZ Fluoroscopy of Multiple Coronary Arteries using Low Osmolar Contrast (ICD-10-PCS; 2018-08-24)
PROC: B2151ZZ Fluoroscopy of Left Heart using Low Osmolar Contrast (ICD-10-PCS; 2018-08-24)
DX: I21.4 Non-ST elevation (NSTEMI) myocardial infarction (principal); I16.0 Hypertensive urgency; E87.6 Hypokalemia; R73.9 Hyperglycemia, unspecified; M19.90 Unspecified osteoarthritis, unspecified site; E78.5 Hyperlipidemia, unspecified; R73.03 Prediabetes; E66.9 Obesity, unspecified; I25.10 Atherosclerotic heart disease of native coronary artery without angina pectoris; I10 Essential (primary) hypertension; Z68.38 Body mass index [BMI] 38.0-38.9, adult; Z86.73 Personal history of transient ischemic attack (TIA), and cerebral infarction without residual deficits; Z79.899 Other long term (current) drug therapy
CPT/HCPCS: 36415; 36416; 71045; 80048; 80053; 80061; 82550; 82553; 83036; 83880; 84484; 85025; 93005; 93010; 93458; 94760; 96372; 99152; C1769; J0360; J1644; J1650; J2001; J2250

== ENCOUNTER 2021-12-27 18:47 | Inpatient (IN) | payer OTHER ==
[2021-12-27 21:48] VITALS: BMI 32.4
[2021-12-27] MEDS ORDERED: Nitroglycerin 0.4 MG TAB (25 Tab Bottle) SL PRN (22:34)
[2021-12-27] MEDS ORDERED: Bisacodyl 5 MG TAB PO PRN (22:34)
[2021-12-27] MEDS ORDERED: HYDROcodone/Acetaminophen 5/325 mg Tablet PO PRN (22:34)
[2021-12-27] MEDS ORDERED: Senokot S 8.6-50 MG TAB PO PRN (22:34)
[2021-12-27] MEDS ORDERED: Acetaminophen 325 MG TAB PO PRN (22:34)
[2021-12-27] MEDS ORDERED: Ondansetron ODT 4 MG TAB PO PRN (22:34)
[2021-12-27] MEDS ORDERED: Ondansetron PF 4 MG/2 ML Vial IVP PRN (22:34)
[2021-12-27] MEDS ORDERED: Electrolyte Replacement Protocol 1 EACH FS SCH (22:45)
[2021-12-27] MEDS ORDERED: Potassium Chloride 20 MEQ TAB PO SCH ×2 (23:00→23:15)
[2021-12-27] MEDS ORDERED: Morphine 2 MG/ML VIAL SLOW IVP PRN (23:04)
[2021-12-27 23:15] LABS: Troponin I 0.102 ng/mL (< 0.028)
[2021-12-27 23:17] LABS: Magnesium 2.1 mg/dL (1.6-2.6)
[2021-12-27 23:23] LABS: Hemoglobin A1c 5.6 % (4.0-6.0)
[2021-12-28 04:12] LABS: #Eosinphils 0.3 thou/uL (0.0-0.7); #Lymphocytes 1.9 thou/uL (1.20-3.40); #Monocytes 0.7 thou/uL (0.11-0.59); #Neutrophils 3.5 thou/uL (1.40-6.50); %Basophils 0.7 % (0.0-1.0); %Eosinophils 4.4 % (0.0-10.0); %Lymphocytes 29.5 % (21.0-51.0); %Monocytes 10.5 % (0.0-10.0); %Neutrophils 54.9 % (42.0-75.0); Hemoglobin 13.1 g/dL (14.0-18.0); Mean Corpuscular HGB CONC 28.3 g/dL (32.0-36.0); Mean Corpuscular Hemoglobin 25.7 pg (27.0-31.0); Mean Corpuscular Volume 90.9 fL (78.0-98.0); Mean Platelet Volume 9.7 fL (7.4-10.4); Platelet Count 241 thou/uL (130-400); RBC Distribution Width 12.5 % (11.5-14.5); Red Blood Cell (RBC) Count 5.08 mill/uL (4.70-6.10); White Blood Cell (WBC) Count 6.4 thou/uL (4.8-10.8)
[2021-12-28 04:43] LABS: Troponin I 0.098 ng/mL (< 0.028)
[2021-12-28 04:45] LABS: ALT (SGPT) 19 U/L (8-55); AST (SGOT) 17 U/L (5-34); Albumin 3.9 g/dL (3.4-4.8); Alkaline Phosphatase 56 U/L (40-110); Anion Gap 14 mmol/L (10-20); BUN (Urea Nitrogen) 12 mg/dL (8.4-25.7); Calc. Creatinine Clearance 124 mL/min (70-130); Calcium 8.8 mg/dL (7.8-10.44); Carbon Dioxide 26 mmol/L (23-31); Cardiac Risk 2.9 (Less than 4.5); Chloride 104 mmol/L (98-107); Cholesterol 124 mg/dl (< 200 Desired); Estimated GFR 98; Globulin 2.7 g/dL (2.4-3.5); Glucose 97 mg/dL (80-115); HDL Cholesterol 43 mg/dL (>60 Neg Risk); LDL Cholesterol, Calculated 70 mg/dL; Potassium 3.5 mmol/L (3.5-5.1); Protein, Total 6.6 g/dL (5.8-8.1); Sodium 140 mmol/L (136-145); Triglycerides 56 mg/dL (Less than 150)
[2021-12-28] MEDS: Aspirin Chewable 81 MG TAB PO SCH (08:05)
[2021-12-28] MEDS: Enoxaparin Sodium 100 MG/ML SYRINGE SC SCH ×2 (08:05→20:42)
[2021-12-28] MEDS: Polyethylene Glycol 3350 17 GM Packet PO SCH (08:05)
[2021-12-29] MEDS: Enoxaparin Sodium 100 MG/ML SYRINGE SC SCH ×2 (09:42→20:37)
[2021-12-29] MEDS: Aspirin Chewable 81 MG TAB PO SCH (09:42)
[2021-12-29] MEDS: Polyethylene Glycol 3350 17 GM Packet PO SCH (09:44)
[2021-12-29] MEDS ORDERED: Lisinopril 20 MG TAB PO SCH (13:15)
[2021-12-29] MEDS: hydrALAZINE 25 MG TAB PO SCH (20:36)
[2021-12-29] MEDS: Lisinopril 10 MG TAB PO SCH (20:36)
[2021-12-29] MEDS ORDERED: Atorvastatin Calcium 40 MG TAB PO SCH (21:00)
[2021-12-30] MEDS ORDERED: Amlodipine 10 MG TAB PO SCH (09:00)
[2021-12-30] MEDS ORDERED: Lisinopril 20 MG TAB PO SCH (09:00)
[2021-12-30] MEDS ORDERED: ADENOSINE 60 MG/20 ML VIAL ONE (09:20)
[2021-12-30] MEDS: Aspirin Chewable 81 MG TAB PO SCH (12:43)
[2021-12-30] MEDS: Enoxaparin Sodium 100 MG/ML SYRINGE SC SCH (12:44)
[2021-12-30] MEDS: Lisinopril 10 MG TAB PO SCH (12:44)
[2021-12-30] MEDS: hydrALAZINE 25 MG TAB PO SCH (12:44)
[2021-12-30] MEDS: Polyethylene Glycol 3350 17 GM Packet PO SCH (12:44)
[2021-12-30 16:11] VITALS: BP 156/91; TEMP 97.4
== END 2021-12-30 17:30 | disposition home or self-care (01) | DRG 313 ==
LOC: 2NO 18:47
PROVIDERS: ADMIT Internal Medicine; ATTEND Internal Medicine
DX: R07.9 Chest pain, unspecified (principal); I25.10 Atherosclerotic heart disease of native coronary artery without angina pectoris; I10 Essential (primary) hypertension; R94.31 Abnormal electrocardiogram [ECG] [EKG]; R01.1 Cardiac murmur, unspecified; Z86.73 Personal history of transient ischemic attack (TIA), and cerebral infarction without residual deficits; R00.2 Palpitations; E87.6 Hypokalemia; E78.5 Hyperlipidemia, unspecified
CPT/HCPCS: 36415; 78452; 80053; 80061; 83036; 83735; 83880; 84443; 84484; 85025; 93005; 93010; 93017; 93306; 94760; A9500; J0153; J1650; U0003; U0005